=== PATIENT | female | born 1990 | race Caucasian/White ===

== ENCOUNTER 2018-03-26 09:32 | Emergency (ER) | payer MEDICAID, OTHER ==
--- NOTE | 2018-03-26 09:42 | UC ---
Lower Extremity/Ankle HPI - HPI Summary HPI Summary: 27 yo female presents with right ankle and foot pain. She tells me that she was walking on uneven ground this morning and inverted her right ankle and foot. Was ambulatory immediately after and drove herself to . Denies numbness or tingling - History of Current Complaint Stated Complaint: ANKLE INJURY Time Seen by Provider: 03/26/18 09:42 Hx Obtained From: Patient Hx Last Menstrual Period: 03/05/16 Onset/Duration: Sudden Onset Severity Initially: Moderate Severity Currently: Moderate Pain Intensity: 7 Pain Scale Used: 0-10 Numeric Aggravating Factor(s): Standing, Ambulation Alleviating Factor(s): Rest Able to Bear Weight: Yes - Allergies/Home Medications Allergies/Adverse Reactions: Allergies Allergy/AdvReac Type Severity Reaction Status Date / Time No Known Allergies Allergy Verified 03/26/18 09:47 Home Medications: Home Medications 21/Iron Fu/Folic Acid [ Complete] 1 tab PO DAILY 03/26/18 [ History Confirmed 03/26/18] PMH/Surg Hx/FS Hx/Imm Hx - Additional Past Medical History Additional PMH: None Previously Healthy: Yes - Surgical History Surgical History: None - Family History Known Family History: Positive: None Negative: Cardiac Disease, Hypertension, Diabetes - Social History Occupation: Employed Full-time Lives: With Family Alcohol Use: None Substance Use Type: None Smoking Status (MU): Former Smoker Type: Cigarettes Have You Smoked in the Last Year: Yes When Did the Patient Quit Smoking/Using Tobacco: 3 months ago Household Exposure Type: Cigarettes - Immunization History Most Recent Influenza Vaccination: 04/2012 Most Recent Tetanus Shot: n/a Most Recent Pneumonia Vaccination: none Review of Systems Constitutional: Negative Skin: Negative Respiratory: Negative Cardiovascular: Negative Neurovascular: Negative Musculoskeletal: Other: - Right ankle and foot pain Neurological: Negative Psychological: Negative All Other Systems Reviewed And Are Negative: Yes Physical Exam - Summary Physical Exam Summary: GENERAL: NAD. WDWN. No pain distress. SKIN: No rashes, sores, lesions, or open wounds. CHEST: No accessory muscle use. Breathing comfortably and in no distress. CV: Pulses intact PT and DP. Cap refill <2seconds MSK: RIGHT ANKLE: FROM. Mild TTP lateral malleolus and ATFL. Negative talar tilt. No increased laxity. Left foot: 5th MT moderate TTP and mild edema. FROM. Strength 5/5. NEURO: Alert. Sensations intact and symmetric B/L LEs PSYCH: Age appropriate behavior. Triage Information Reviewed: Yes Vital Signs: Vital Signs: Temp Pulse Resp BP Pulse Ox 97.3 F 110 16 125/90 99 03/26/18 09:42 03/26/18 09:42 03/26/18 09:42 03/26/18 09:42 03/26/18 09:42 Vital Signs Reviewed: Yes Lower Extremity Course/Dx - Course Course Of Treatment: XR: IMPRESSION: No fracture of the right ankle is noted. FOOT: IMPRESSION: NO ACUTE OSSEOUS INJURY. IF SYMPTOMS PERSIST, RECOMMEND REPEAT IMAGING. Suspect foot sprain. Advised to RICE. RORY wrapped and crutches provided. Advised to f/u with Sports medicine as soon as possible - Differential Dx/Diagnosis Provider Diagnoses: Right foot sprain Discharge - Sign-Out/Discharge Documenting (check all that apply): Patient Departure All imaging exams completed and their final reports reviewed: Yes - Discharge Plan Condition: Stable Disposition: HOME Patient Education Materials: Foot Sprain (ED) Referrals: Yeison PATTON,Corbin Driver [Primary Care Provider] - Marlon Willson MD [Medical Doctor] - If Needed Additional Instructions: If you develop a fever, shortness of breath, chest pain, new or worsening symptoms - please call your PCP or go to the ED. Your blood pressure was mildly elevated at todays visit. Please see your primary provider within 4 weeks for recheck and re-evaluation. 1) Rest, Ice, and elevate your foot as much as possible to reduce pain and swelling 2) Use the wrap and your crutches as needed for pain relief 3) If your symptoms persist - please call Orthopedics at the number below to schedule a follow up appointment - Billing Disposition and Condition Condition: STABLE Disposition: Home
[2018-03-26 09:48] VITALS: BP 125/90
--- NOTE | 2018-03-26 10:22 | RAD ---
Indication: Right ankle pain. 3 views of the right ankle demonstrates no fracture. Ankle mortise is intact. No other bone or joint abnormality is identified. IMPRESSION: No fracture of the right ankle is noted.
--- NOTE | 2018-03-26 11:00 | RAD ---
HISTORY: Pain 5th MT COMPARISONS: None VIEWS: 3, Frontal, lateral, and oblique views of the left foot FINDINGS: BONE DENSITY: Normal. BONES: There is no displaced fracture. JOINTS: There is no arthropathy. ALIGNMENT: There is no dislocation. SOFT TISSUES: Unremarkable. OTHER FINDINGS: None. IMPRESSION: NO ACUTE OSSEOUS INJURY. IF SYMPTOMS PERSIST, RECOMMEND REPEAT IMAGING.
== END 2018-03-26 11:12 | disposition home or self-care (01) ==
LOC: UCEAST 09:32
DX: S93.601A Unspecified sprain of right foot, initial encounter (principal); X50.0XXA Overexertion from strenuous movement or load, initial encounter; Y93.01 Activity, walking, marching and hiking; Z87.891 Personal history of nicotine dependence
CPT/HCPCS: 99213; G0463

== ENCOUNTER 2018-11-15 12:16 | Inpatient (IN) | payer MEDICAID, OTHER ==
[2018-11-15] MEDS ORDERED: Magnesium Sulfate OB PREMIX* 40 GM/1,000 ML BAG ONE (12:39)
[2018-11-15] MEDS ORDERED: Magnesium Sulf 4 GM/100 ML IV* 4,000 MG/100 ML BAG IVPB ONE (12:40)
[2018-11-15] MEDS ORDERED: Betamethasone INJ* 6 MG/ML 5 ML VIAL (30 MG) IM ONE (12:42)
[2018-11-15] MEDS ORDERED: Magnesium Sulfate OB PREMIX* 40 GM/1,000 ML BAG IVPB SCH (13:00)
--- NOTE | 2018-11-15 13:24 | HP ---
General Information - Reason for Visit bleeding / 27 yo g [id number] received betamethasone on Sunday and sunday of this week for rx of preteerm labor She woke up this am at 0900 with bleeding and cramping . called and was told to come to L&D - General Information Maternal Age: 27 Grav: 5 Para: 2 SAB: 2 IEA: 0 Estimated Due Date: 02/10/19 Determined By: LMP Maternal Blood Type and Rh: A Negative - Results this Serology/RPR Result: Non-Reactive Rubella Result: Non-Immune HBsAg Result: Negative HIV Result: Negative Past Medical History Delivery History: Hx Complicated Vaginal Delivery - labor both previous pregnancies Review of Systems Constitutional: Uncomfortable Gastrointestinal: No Nausea/Vomiting Genitourinary: Bleeding, No Leaking Fluid Musculoskeletal: Abdominal Pain Neurological: No Headache Movement: Normal Exam Allergies/Adverse Reactions: Allergies No Known Allergies Allergy (Verified 11/11/18 09:51) Lab Values - Entire Visit: Laboratory Tests 11/15/18 12:33 Blood Type A Negative - Measurements Height: 5 ft 6.5 in Weight: 221 lb Weight in lbs: 221.362590 Body Mass Index (BMI): 35.1 Pre- Weight: 225 lb Weight Gained This : -4 lbs and 0 ozs - Exam Breast: Breast Exam Deferred Heart: Normal Rhythm/Heart Sounds HEENT: No Significant Findings Lungs: Clear Bilaterally Rectal: Rectal Exam Deferred Reflexes: DTR 2+ Targeted Exam Findings See L&D Outpatient Visit Provider Note for Findings: N/A Estimated Weight: 800gm Cervical Exam: 4cm Effacement: 100% Station: Ballotable Presenting Part: Vertex Membrane Status: Intact EFM Findings - External Monitor Findings Baseline Heart Rate: 150 External Monitor Findings: No Pattern of Variable or Late Decelerations, Variability Moderate Contractions: Mild, < 45 Seconds Assessment/Plan - Assessment labor - Plan Plan: Antibiotic Prophylaxis, Mag Sulfate, Transfer to [facility]iary [facility] - will reassess in short interval and if no progress will transfer to [facility]/ d/w dr smith
[2018-11-15] MEDS: Ampicillin ADVAN(*) 2 GM in NS 0.9% 100 ML* 100 ML IVPB SCH ×2 (13:40→20:56)
[2018-11-15] MEDS ORDERED: Midazolam* 1 MG/ML 2 ML VIAL (2 MG) ONE (14:14)
[2018-11-15] MEDS ORDERED: fentaNYL* 50 MCG/ML 2 ML VIAL (100 MCG VIAL) ONE ×3 (14:14→15:22)
[2018-11-15] MEDS ORDERED: ceFOXitin 2 GM IVPREMIX* 2 GM/50 ML BAG ONE (14:17)
[2018-11-15] MEDS ORDERED: Phenylephrine 40 MCG/ML SYRINGE ONE (14:29)
[2018-11-15] MEDS ORDERED: Ondansetron INJ* 2 MG/ML VIAL ONE (14:36)
[2018-11-15] MEDS ORDERED: Propofol* 10 MG/ML 20 ML BTL ONE (14:39)
[2018-11-15] MEDS ORDERED: Lidocaine 2% PF * 5 ML VIAL ONE (14:39)
[2018-11-15] MEDS ORDERED: Succinylcholine* 20 MG/ML 10 ML VIAL ONE (14:39)
[2018-11-15] MEDS ORDERED: EPHEDrine (Pressors)* 50 MG/ML VIAL ONE (14:40)
[2018-11-15] MEDS ORDERED: OXYTOCIN* 10 UNITS/ML 1 ML VIAL ONE (14:40)
[2018-11-15 14:52] LABS: ABS Basophils 0.1 10^3/ul (0-0.2); ABS Eosinophils 0.1 10^3/ul (0-0.6); ABS Lymphocytes 3.2 10^3/ul (1.0-4.8); ABS Monocytes 1.3 10^3/ul (0-0.8); ABS Neutrophils 16.9 10^3/ul (1.5-7.7); ABS Nucleated RBC 0 10^3/ul; Eosinophil % 0.6 %; Hematocrit 37 % (33-41); Hemoglobin 12.6 g/dL (12.0-16.0); Mean Corpuscular HGB Conc 34 g/dL (31-36); Mean Corpuscular Hemoglobin 33 pg (27-31); Mean Corpuscular Volume 98 fL (80-97); Mean Platelet Volume 7.4 fL (7.4-10.4); Nucleated Red Blood Cells % 0; Platelet Count 401 10^3/uL (150-450); Red Blood Count 3.82 10^6 /uL (3.70-4.87); Red Cell Distribution Width 13 % (10.5-15); White Blood Count 21.6 10^3/uL (3.5-10.8)
[2018-11-15] MEDS ORDERED: Dibucaine 1% 28.35 GM TUBE PR PRN (15:18)
[2018-11-15] MEDS ORDERED: Glycerin ADULT SUPP PR PRN (15:18)
[2018-11-15] MEDS ORDERED: Zolpidem TAB* 5 MG PO PRN (15:18)
[2018-11-15] MEDS ORDERED: Acetaminophen TAB* 325 MG PO PRN (15:18)
[2018-11-15] MEDS ORDERED: Witch Hazel PAD* JAR TOPICAL PRN (15:18)
[2018-11-15] MEDS ORDERED: Naloxone* 0.4 MG/ML 1 ML VIAL IV PUSH PRN (15:20)
[2018-11-15] MEDS ORDERED: Ketorolac INJ* 30 MG/ML 1 ML VIAL ONE (15:22)
[2018-11-15] MEDS ORDERED: Naloxone* 0.4 MG/ML 1 ML VIAL IV PRN (15:40)
[2018-11-15] MEDS ORDERED: fentaNYL* 50 MCG/ML 2 ML VIAL (100 MCG VIAL) IV PRN (15:40)
[2018-11-15] MEDS ORDERED: Ketorolac INJ* 30 MG/ML 1 ML VIAL IV PRN (15:40)
[2018-11-15] MEDS ORDERED: Oxytocin in LR* 20 UNITS/1,000 ML BAG IVPB SCH (16:00)
[2018-11-15] MEDS ORDERED: HYDROmorphone PCA* 20 MG/20 ML PCA.SYRING PCA SCH (16:00)
[2018-11-15] MEDS ORDERED: HYDROmorphone PCA* 20 MG/20 ML PCA.SYRING ONE (16:10)
[2018-11-15] MEDS: Simethicone TAB* 80 MG TAB.CHEW PO SCH ×2 (17:39→21:08)
[2018-11-15] MEDS ORDERED: Nicotine Inhaler* 10 MG AMP INH PRN (19:55)
[2018-11-15] MEDS ORDERED: Mouth Piece, Nicotine* 1 EACH CARTRIDGE ONE (20:50)
[2018-11-15] MEDS: Lactated Ringers 1000 ML Bag* 1,000 ML IV SCH ×2 (22:00→22:01)
[2018-11-15] MEDS: ceFOXitin 2 GM IVPREMIX* 2 GM/50 ML BAG IVPB SCH (22:02)
--- NOTE | 2018-11-16 00:29 | OP ---
OPERATIVE REPORT: DATE OF OPERATION: 11/15/18 DATE OF : 88 SURGEON: Marco Antonio Rangel MD ROOFING MACHINE OPERATOR: Amanda Wyatt CNM. ANESTHESIA: General endotracheal tube. PRE-OP DIAGNOSIS: Cord prolapse, 27 week gestation. POST-OP DIAGNOSIS: Cord prolapse, 27 week gestation. OPERATIVE PROCEDURE:classical section/ Note the incision was in the lower uterine segment . But in a diagonal plane and through thick myometrium. Do not suggest the patient labor in the future. ESTIMATED BLOOD LOSS: 800 cc. FINDINGS: This is a 27-year-old 5, para 0-2-2-2 with 2 prior births. She presented to the hospital on Sunday of the week of admission with threatened labor. She was given betamethasone on Sunday and Sunday and was discharged home. She re-presented to the hospital approximately 12:30 p.m. on 11/15/18 with complaints of bleeding and cramps. At that time, she was examined, heart rate was in the 150s. She was examined, she was found to be 4 cm. Arrangements were made for admission and she was started on magnesium and ampicillin. Because she has gotten betamethasone, no other tocolytics were utilized. Arrangements were made for possible transfer; however, she progressed quickly to 8 cm within an hour and with expectation that she would deliver, an ultrasound was performed, which showed a vertex presenting with the hands along side. The patient had an IV progress quickly with desire to push. The NICU was brought to the delivery room and she began to push with a bulging bag of water without any presenting parts visible or palpable through it. THis presented at the introitus Because of the early gestation it was thought once the bag broke that most of the baby would already be delivered; the bag of water broke and no presenting part could be identified. On vaginal exam, the baby was still quite high with a palpable hand and umbilical cord. At this point, the decision for stat section was called for a baby which felt most likely in the transverse position. The patient was brought back to the OR , anesthesia was called and she was quickly put with the physician riding in the bed back with her and holding the presenting part up. She was brought back to the OR and put to sleep under Betadine prep and quickly under general anesthesia a vertical incision was made and the was delivered. It was a viable male. Apgars are not available at the time of this dictation as the baby is still with the chauffeur. DESCRIPTION OF PROCEDURE: The patient identified, procedure identified as a stat section. The patient was in the operating room and prepped with Betadine and quickly covered in sterile drape. A vertical incision was made from the pubic symphysis to just below the umbilicus and brought down through the fat, fascia, and peritoneum. A vertical incision was made in the uterus and the above was delivered through the incision. Initially a hand delivered with a cord and then the vertex did pop in the incision and this was delivered. The cord was clamped twice and then handed to the awaiting subway guard. Cord pH and cord blood were obtained. Placenta delivered manually. The uterus was brought out through the incision. It was wiped out with a wet lap sponge. The uterine incision was then closed using 0 Polysorb in a running fashion. A second layer was used to imbricate the first layer. Good hemostasis was verified. The uterus, tubes and ovaries were visualized and everything appeared normal. A square of Interceed was placed over the uterine incision, it was placed back in the abdominal cavity after the gutters had been wiped out with wet lap sponges. Good hemostasis was verified intraperitoneally. The peritoneum was then closed using 3-0 Polysorb in a running fashion. Hemostasis achieved in the subrectus layer. The fascia was closed using 0 Polysorb in a running fashion. Hemostasis achieved in the subcu. Copious irrigation was utilized and suctioned out. The subcu tissue was reapproximated using 3-0 Polysorb and the skin was closed with allen. All sponge and instrument counts were correct; however, there was no pre-count because of the rapidity of the and an x-ray was performed that showed no lap sponges nor any instruments within the abdomen. The patient returned to recovery room in stable condition. [id number]/[facility] #: [id number] MOOK
[2018-11-16] MEDS: Ampicillin ADVAN(*) 2 GM in NS 0.9% 100 ML* 100 ML IVPB SCH ×4 (03:05→20:36)
[2018-11-16] MEDS: ceFOXitin 2 GM IVPREMIX* 2 GM/50 ML BAG IVPB SCH ×3 (06:18→22:24)
[2018-11-16 06:58] LABS: ABS Basophils 0 10^3/ul (0-0.2); ABS Eosinophils 0.2 10^3/ul (0-0.6); ABS Lymphocytes 2.4 10^3/ul (1.0-4.8); ABS Neutrophils 15.2 10^3/ul (1.5-7.7); ABS Nucleated RBC 0 10^3/ul; Eosinophil % 0.9 %; Hematocrit 31 % (33-41); Hemoglobin 10.7 g/dL (12.0-16.0); Lymphocyte % 12.7 %; Mean Corpuscular HGB Conc 34 g/dL (31-36); Mean Corpuscular Hemoglobin 34 pg (27-31); Mean Corpuscular Volume 97 fL (80-97); Mean Platelet Volume 7.2 fL (7.4-10.4); Nucleated Red Blood Cells % 0; Platelet Count 288 10^3/uL (150-450); Red Blood Count 3.21 10^6 /uL (3.70-4.87); Red Cell Distribution Width 13 % (10.5-15); White Blood Count 18.7 10^3/uL (3.5-10.8)
[2018-11-16] MEDS: oxyCODONE/Acetamin 5/325 MG* TAB PO PRN ×4 (08:06→20:35)
[2018-11-16] MEDS: Ibuprofen TAB* 600 MG PO PRN ×3 (08:06→20:34)
[2018-11-16] MEDS: Simethicone TAB* 80 MG TAB.CHEW PO SCH ×3 (08:06→20:35)
[2018-11-16] MEDS ORDERED: Ferrous Gluconate TAB* 324 MG TAB PO SCH (09:00)
[2018-11-16] MEDS: Docusate CAP* 100 MG PO PRN ×3 (14:38→20:36)
[2018-11-16] MEDS ORDERED: Tetan/Diph/Pertus SYR(Tdap)* 0.5 ML SYR(BOOSTRIX) use SYR IM ONE (21:04)
[2018-11-16] MEDS ORDERED: Measles, Mumps,Rubella VACC* 0.5 ML/VIAL SUBCUT ONE (21:05)
[2018-11-17] MEDS: oxyCODONE/Acetamin 5/325 MG* TAB PO PRN ×4 (01:00→10:25)
[2018-11-17 08:18] VITALS: BP 120/71
[2018-11-17] MEDS: Docusate CAP* 100 MG PO PRN (08:30)
[2018-11-17] MEDS: Simethicone TAB* 80 MG TAB.CHEW PO SCH ×2 (08:30→08:37)
[2018-11-17] MEDS: Ibuprofen TAB* 600 MG PO PRN (11:25)
== END 2018-11-17 11:30 | disposition home or self-care (01) | DRG 540 ==
LOC: MCHOBOUT 12:16 → MCHOB 12:44
PROVIDERS: ADMIT Obstetrics & Gynecology; ATTEND Obstetrics & Gynecology
PROC: 4A1HXCZ Monitoring of Products of Conception, Cardiac Rate, External Approach (ICD-10-PCS; 2018-11-15)
PROC: 10D00Z0 Extraction of Products of Conception, High, Open Approach (ICD-10-PCS; principal; 2018-11-15 14:07)
DX: O69.0XX0 Labor and delivery complicated by prolapse of cord, not applicable or unspecified (principal); O60.12X0 Preterm labor second trimester with preterm delivery second trimester, not applicable or unspecified; O99.334 Smoking (tobacco) complicating childbirth; F17.210 Nicotine dependence, cigarettes, uncomplicated; Z3A.27 27 weeks gestation of pregnancy; Z37.0 Single live birth
CPT/HCPCS: 36415; 74018; 85025; 86850; 86870; 86880; 86900; 86901; 87070; 87086; 88307; 90707; 90715; A9270-GY; J0330; J0694; J1170; J1885; J2250; J2405; J2590; J2704; J3010

== ENCOUNTER → 2019-01-31 05:43 | Day surgery (SDC) | payer MEDICAID, OTHER ==
[~2019-01-31 05:43] MED LIST: Atracurium* 10 MG/ML 10 ML VIAL ONE; Buffered Lidocaine 1% SYRIN* 1 ML/SYRINGE INTRADERM ONE; Bupivacaine 0.25% SDV PF* 10 ML VIAL INJ ONE; Dexamethasone IV* 4 MG/ML 1 ML (4 MG) IV SLOW PU ONE; Dexamethasone IV* 4 MG/ML 1 ML (4 MG) ONE; DiMENhydriNATE IV* 50 MG/ML VIAL IV PUSH PRN; EPHEDrine (Pressors)* 50 MG/ML VIAL ONE; Famotidine IV* 10 MG/ML 2 ML (20 mg) IV ONE; Famotidine IV* 10 MG/ML 2 ML (20 mg) ONE; HYDROmorphone INJ1* 1 MG/ML SYRINGE IV PRN; Ketorolac INJ* 30 MG/ML 1 ML VIAL ONE; Lactated Ringers 1000 ML Bag* 1,000 ML IV SCH; Midazolam* 1 MG/ML 5 ML VIAL (5 MG) ONE; Naloxone* 0.4 MG/ML 1 ML VIAL IV PRN; Ondansetron INJ* 2 MG/ML VIAL IV PRN; Ondansetron INJ* 2 MG/ML VIAL ONE; Propofol* 10 MG/ML 20 ML BTL ONE; Silver Nitrate/Potassium Nitr* 1 EA STICK ONE; fentaNYL* 50 MCG/ML 2 ML VIAL (100 MCG VIAL) IV PRN; fentaNYL* 50 MCG/ML 2 ML VIAL (100 MCG VIAL) ONE; fentaNYL* 50 MCG/ML 5 ML VIAL (250 MCG VIAL) ONE; oxyCODONE/Acetamin 5/325 MG* TAB ONE; oxyCODONE/Acetamin 5/325 MG* TAB PO PRN
[2019-01-31 06:45] LABS: Hematocrit 43 % (35-47); Mean Corpuscular HGB Conc 35 g/dL (31-36); Mean Corpuscular Hemoglobin 32 pg (27-31); Mean Corpuscular Volume 92 fL (80-97); Mean Platelet Volume 7.4 fL (7.4-10.4); Platelet Count 374 10^3/uL (150-450); Red Blood Count 4.73 10^6 /uL (3.70-4.87); Red Cell Distribution Width 15 % (10-15); White Blood Count 8.2 10^3/uL (3.5-10.8)
[2019-01-31 09:35] VITALS: BP 125/91
--- NOTE | 2019-01-31 12:24 | OP ---
OPERATIVE REPORT: DATE OF OPERATION: 01/31/19 DATE OF : 88 SURGEON: Murali Dick MD ANESTHESIOLOGIST: Dr. Simpson. ANESTHESIA: General. PRE-OP DIAGNOSIS: Satisfied parity. POST-OP DIAGNOSIS: Satisfied parity, pelvic adhesions, and small peritoneal mass. OPERATIVE PROCEDURE: Laparoscopic bilateral tubal ligation with Filshie clips, lysis of adhesions, and biopsy of peritoneal mass. ESTIMATED BLOOD LOSS: Minimal. URINE OUTPUT: 50 cc. IV FLUIDS: 800 cc Lactated Ringer's. INDICATIONS: This patient is a 28-year-old 5, para 3, who presented to the office strongly desiring permanent sterilization. The patient was extensively counseled and consent was signed. FINDINGS: Normal-appearing uterus, fallopian tubes, and ovaries. Small amount of adhesions from the omentum to the anterior abdominal wall and also from the anterior uterus to the anterior abdomen. There was also an approximately 1 cm dark reddish-green mass of tissue in the midline of the lower abdomen consistent with the patient's recent prior midline incision. MATERIALS TO LAB: Peritoneal biopsy. COMPLICATIONS: None. DESCRIPTION OF PROCEDURE: The risks, benefits, and alternatives were described to the patient, and informed consent was obtained. The patient was taken to the operating room with IV running, where general anesthesia was induced and found to be adequate. The patient was prepped and draped in a normal sterile fashion in the high lithotomy position in [facility]. A time-out was performed. The bladder was emptied. A bivalved speculum was placed in the vagina and a single- tooth tenaculum was placed on the anterior cervix. The speculum was then removed and the patient was returned to a low lithotomy position. Gloves were changed and attention was turned to the abdomen. 0.25% Marcaine was then injected into the umbilicus. Penetrating towel clamps were placed in the skin on either sides to elevate the abdominal skin. A 5 mm bladeless trocar was then inserted into the umbilical incision and placed into the peritoneal cavity with the camera in place for direct visualization. Placement inside the abdomen was confirmed and gas was turned on. The abdomen was insufflated with carbon dioxide gas to a maximum pressure of 15 mmHg. The patient was then placed in the Trendelenburg position. Using the uterine manipulator, the uterus, fallopian tubes, and ovaries were able to be visualized. The peritoneal mass which was seen in the lower anterior abdominal wall was seen and there was also a very thin adhesion extending from the anterior wall down to the omentum. Considering this, the second port was placed in the left lower quadrant rather than suprapubic. 0.25 % Marcaine was injected there and an 8 mm bladeless trocar was placed into the abdominal cavity without difficulty. Using eri with monopolar cautery, the thin omental adhesion and some anterior uterine adhesions were taken down. The peritoneal mass was also removed using the eri and cautery. This was removed through the port and sent to the lab. Filshie clips were then prepared. A Filshie clip was placed on the patient's right fallopian tube in the mid-isthmic portion being careful to extend the clip all the way across with the fallopian tube. This was done with good visualization. The same was performed on the patient's left side and again with hemostasis. At that time, the procedure was completed. The gas was allowed to escape from the abdomen and the ports were removed. The left lower quadrant incision was reapproximated using 4-0 Monocryl in a subcuticular stitch, and DermaFlex skin adhesive was placed on both incision sites. The Hulka tenaculum was then removed from the cervix. There was moderate bleeding from the anterior cervix, so pressure was placed with a sponge stick initially and silver nitrate was also applied with improvement in the bleeding. The patient was then allowed to awaken. The patient tolerated the procedure well. Sponge, lap, and needle counts were correct x2. [id number]/[facility] #: [id number] [facility]ITALEmma
== END | disposition home or self-care (01) ==
LOC: OR 05:43
PROVIDERS: ATTEND Obstetrics & Gynecology
DX: Z30.2 Encounter for sterilization (principal); N73.6 Female pelvic peritoneal adhesions (postinfective); N94.89 Other specified conditions associated with female genital organs and menstrual cycle; Z72.0 Tobacco use
CPT/HCPCS: 36415; 81025; 85027; 86850; 86900; 86901; 88305; A9270-GY; C1776; J1100; J1885; J2250; J2405; J2704; J3010; J3490

== ENCOUNTER 2020-12-17 23:57 | Inpatient (IN) ==
[2020-12-18 01:01] LABS: Urine Benzodiazepine Screen None Detected (None Detect); Urine Cannabinoids Screen None Detected (None Detect); Urine Opiates Screen None Detected (None Detect)
[2020-12-18 01:03] LABS: ABS Basophils 0.1 10^3/ul (0-0.2); ABS Eosinophils 0.1 10^3/ul (0-0.6); ABS Lymphocytes 2.2 10^3/ul (1.0-4.8); ABS Monocytes 0.4 10^3/ul (0-0.8); ABS Neutrophils 7.1 10^3/ul (1.5-7.7); Eosinophil % 1.4 %; Hematocrit 40 % (35-47); Hemoglobin 13.3 g/dL (12.0-16.0); Lymphocyte % 21.9 %; Mean Corpuscular HGB Conc 34 g/dL (31-36); Mean Corpuscular Hemoglobin 32 pg (27-31); Mean Corpuscular Volume 95 fL (80-97); Nucleated Red Blood Cells % 0.1; Platelet Count 384 10^3/uL (150-450); Red Blood Count 4.16 10^6 /uL (3.70-4.87); Red Cell Distribution Width 14 % (10-15); White Blood Count 9.9 10^3/uL (3.5-10.8)
[2020-12-18 01:15] LABS: ALT 14 U/L (7-52); AST 13 U/L (13-39); Albumin/Globulin Ratio 1.3 (1-3); Alkaline Phosphatase 54 U/L (34-104); Anion Gap 6 mmol/L (2-11); Blood Urea Nitrogen 12 mg/dL (6-24); CO2 Carbon Dioxide 26 mmol/L (22-32); Calcium 8.9 mg/dL (8.6-10.3); Chloride 104 mmol/L (101-111); EGFR African American 107.4 (>60); EGFR Non-African American 88.8 (>60); Globulin 3.1 g/dL (2-4); Glucose 122 mg/dL (70-100); Potassium 3.6 mmol/L (3.5-5.0); Sodium 136 mmol/L (135-145); Total Protein 7.1 g/dL (6.4-8.9)
[2020-12-18 01:20] LABS: Urine Appearance Clear; Urine Bilirubin Negative (Negative); Urine Blood 2+ (Negative); Urine Color Yellow; Urine Glucose Negative (Negative); Urine Ketones Negative (Negative); Urine Nitrite Negative (Negative); Urine Protein Negative (Negative); Urine Specific Gravity 1.012 (1.002-1.030); Urine Urobilinogen Negative (Negative)
[2020-12-18 01:25] LABS: Urine Bacteria Absent (Absent); Urine Red Blood Cell Trace(0-2/hpf) (Absent); Urine Squamous Epithelial Cell Present (Absent); Urine White Blood Cell Absent (Absent)
[2020-12-18 01:47] LABS: Acetaminophen < 15 mcg/mL; Alcohol, S < 10 mg/dL (<10); Salicylate < 2.50 mg/dL (<30)
[2020-12-18 02:02] LABS: TSH Ultra Thyroid Stim Horm 2.32 mcIU/mL (0.34-5.60)
[2020-12-18] MEDS ORDERED: Al Hydrox/Mg Hydrox/Simet LIQ 30 ML UDC PO PRN (04:01)
[2020-12-18] MEDS: Vitamin THERAPEUTIC TAB PO SCH (09:08)
[2020-12-18] MEDS: Nicotine GUM 2MG FRUIT FLAVOR PO PRN ×2 (10:38→17:15)
[2020-12-18] MEDS: Nicotine PATCH 14 MG/24 HR PATCH TRANSDERM SCH (10:38)
[2020-12-18] MEDS: DULoxetine DR 30 mg CAP PO SCH (15:46)
[2020-12-19] MEDS: Vitamin THERAPEUTIC TAB PO SCH (08:27)
[2020-12-19] MEDS: Nicotine PATCH 14 MG/24 HR PATCH TRANSDERM SCH (08:27)
[2020-12-19] MEDS: DULoxetine DR 30 mg CAP PO SCH (08:27)
[2020-12-19] MEDS: Nicotine GUM 2MG FRUIT FLAVOR PO PRN ×2 (08:27→15:19)
[2020-12-20] MEDS: Nicotine GUM 2MG FRUIT FLAVOR PO PRN (09:54)
[2020-12-20] MEDS: DULoxetine DR 30 mg CAP PO SCH (09:54)
[2020-12-20] MEDS: Nicotine PATCH 14 MG/24 HR PATCH TRANSDERM SCH (09:54)
[2020-12-20] MEDS: Vitamin THERAPEUTIC TAB PO SCH (09:54)
[2020-12-21] MEDS: Vitamin THERAPEUTIC TAB PO SCH (09:48)
[2020-12-21] MEDS: DULoxetine DR 60 mg CAP PO SCH (09:48)
[2020-12-21] MEDS: Nicotine PATCH 14 MG/24 HR PATCH TRANSDERM SCH (09:48)
[2020-12-21] MEDS: Nicotine GUM 2MG FRUIT FLAVOR PO PRN (16:00)
[2020-12-21 18:06] VITALS: BP 120/73
[2020-12-22] MEDS: Nicotine PATCH 14 MG/24 HR PATCH TRANSDERM SCH (09:16)
[2020-12-22] MEDS: Vitamin THERAPEUTIC TAB PO SCH (09:17)
[2020-12-22] MEDS: DULoxetine DR 60 mg CAP PO SCH (09:17)
[2020-12-22] MEDS: Nicotine GUM 2MG FRUIT FLAVOR PO PRN (09:17)
== END 2020-12-22 12:34 | disposition home or self-care (01) | DRG 751 ==
LOC: ED 23:57 → BSU 12-18 02:22
PROVIDERS: ADMIT Psychiatry & Neurology Psychiatry; ATTEND Psychiatry & Neurology Psychiatry